=== PATIENT | male | born 1990 | race Caucasian/White ===

== ENCOUNTER 2019-10-10 17:22 | Inpatient (IN) | payer OTHER ==
[~2019-10-10] VITALS: Ht 185.4 cm; Wt 76.2 kg
[2019-10-10] MEDS ORDERED: NS 1,000 ML IV ONE (19:30)
[2019-10-10] MEDS ORDERED: methylPREDNISolone INJ 125 MG/2 ML VIAL (J2930) IV ONE (19:30)
[2019-10-10 19:45] LABS: BASO # 0.1 10^3/uL (0.0-0.2); BASO % 0.5 % (0.0-1.0); EOS # 0.2 10^3/uL (0.0-0.5); EOS % 2.1 % (0.0-3.0); HEMATOCRIT 43.1 % (42.0-52.0); HEMOGLOBIN 14.6 g/dl (13.5-17.5); LYMPH # 2.3 10^3/uL (1.5-5.0); LYMPH % 25.3 % (24.0-44.0); MEAN CORPUSCULAR HEMOGLOBIN 29.2 pg (27.0-33.0); MEAN CORPUSCULAR HGB CONC 33.9 g/dl (32.0-36.5); MEAN CORPUSCULAR VOLUME 86.2 fl (80.0-96.0); MONO # 0.6 10^3/uL (0.0-0.8); MONO % 6.5 % (0.0-5.0); NEUTROPHILS % 65.3 % (36.0-66.0); PLATELET COUNT, AUTOMATED 208 10^3/uL (150-450); WHITE BLOOD COUNT 9.2 10^3/uL (4.0-10.0)
[2019-10-10 20:11] LABS: BLOOD UREA NITROGEN 12 MG/DL (7-18); C REACTIVE PROTEIN QUANTITATIV 2.42 MG/DL (0.00-0.30); CALCIUM LEVEL 9.8 MG/DL (8.5-10.1); CARBON DIOXIDE LEVEL 29 MEQ/L (21-32); CHLORIDE LEVEL 100 MEQ/L (98-107); CREATININE FOR GFR 0.85 MG/DL (0.70-1.30); GLOMERULAR FILTRATION RATE > 60.0 (>60); GLUCOSE, FASTING 76 MG/DL (70-100); POTASSIUM SERUM 3.7 MEQ/L (3.5-5.1); SODIUM LEVEL 137 MEQ/L (136-145)
[2019-10-10] MEDS ORDERED: ISOVUE-370 76% 100ML VIAL (Q9967) As Ordered ONE (20:18)
[2019-10-10 20:33] LABS: ERYTHROCYTE SEDIMENTATION RATE 2 mm/hr (0-15)
--- NOTE | 2019-10-10 20:45 | REPVR ---
PROCEDURE INFORMATION: Exam: CT Maxillofacial With Contrast Exam date and time: 10/10/2019 8:20 PM Clinical history: 29 years old, male; Mass, lump, or swelling; Maxilla; Additional info: Swelling, redness worry for abscess TECHNIQUE: Imaging protocol: Computed tomography images of the face with intravenous contrast. Radiation optimization: All CT scans at this facility use at least one of these dose optimization techniques: automated exposure control; mA and/or kV adjustment per patient size (includes targeted exams where dose is matched to clinical indication); or iterative reconstruction. Contrast material: ISOVUE 370; Contrast volume: 75 ml; Contrast route: IV; COMPARISON: No relevant prior studies available. FINDINGS: Orbits: Orbits are normal. Globes are unremarkable. Sinuses: Normal. No air-fluid levels. Bones/joints: No acute fracture. Lymph nodes: Left perimandibular lymphadenopathy anterior to the submandibular gland measures up to 8 mm likely postinflammatory/infectious. Soft tissues: Gross subcutaneous edema involving the left mandibular, maxillary and buccal regions associated with overlying skin thickening, findings consistent with acute cellulitis. There is a linear fluid density mass demonstrated adjacent to the left masseter muscle measuring 2.1 x 0.6 x 1.3 cm which may represent a developing abscess. IMPRESSION: 1. Gross subcutaneous edema involving the left mandibular, maxillary and buccal regions associated with overlying skin thickening, findings consistent with acute cellulitis. There is a linear fluid density mass demonstrated adjacent to the left masseter muscle which may represent a developing abscess. 2. Regional lymphadenopathy noted as well. Electronically signed by: Mitchell Ventura On 10/10/2019 20:44:55 PM
[2019-10-10] MEDS ORDERED: ALPR0.5T3 (21:25)
[2019-10-10] MEDS ORDERED: BUPR1SUB5 (21:25)
[2019-10-10] MEDS ORDERED: FLUT15.820 (21:25)
[2019-10-10] MEDS ORDERED: DULO1CAP5 (21:25)
[2019-10-10] MEDS ORDERED: BUTA1CAP (21:25)
[2019-10-10] MEDS ORDERED: PIPERACILLIN/TAZOBACTAM SOD 3.375 GM in D5W MINI-BAG PLUS 50 ML IV ONE (21:30)
[2019-10-10] MEDS ORDERED: ACETAMINOPHEN TAB 650MG DOSE (2X325MG) PO PRN (21:30)
[2019-10-10] MEDS ORDERED: VANCOMYCIN HCL 1,000 MG, VIAL MATE ADAPTER 1 EACH in D5W 250 ML IV ONE (21:30)
--- NOTE | 2019-10-10 21:34 | HPEPDOC ---
[facility] Medical History & Physical Date of Admission Oct 10, 2019 Date of Service: Oct 10, 2019 Primary Care Physician: A Other Provider NEHA LITTLE MD Attending Physician: JILLIAN AVITIA MD History and Physical TIME OF SERVICE: 10 PM CHIEF COMPLAINT: Facial lesions HISTORY OF PRESENT ILLNESS: This is a 29-year-old male who presented with complaints of red, painful , raised swollen lesions that were draining green discharge all over his face for 3 days. Prior to that he was at a bar and did a line of what he thought was cocaine. Yesterday he took some clindamycin which was left over from an old prescription of his father's. He denies having any fevers, denies having any chills and denies having this occurred in before after using cocaine. Per discussion with the ED provider. Oral surgery was consulted and recommended ENT eval. Dr. Tran (ENT) recommended admission and IV antibiotics for a minimum of 48 hours and reported that he wouldn't do a procedure at this point in time unless there was a definitive abscess. He received Zosyn. 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 Uses cocaine 1 or 2 times per month Uses marijuana Lives with his parents FAMILY HISTORY: No family history of psychiatric or urological disorders ALLERGIES: Please see below. HOME MEDICATIONS: Please see below. PHYSICAL EXAMINATION: VITAL SIGNS: Please see below. GENERAL APPEARANCE: Well-nourished, well-developed, slightly anxious INTEGUMENT: He has multiple red lesions all over his face with the largest being under his left orbit and extending to the mandible; there is swelling around the left orbit. HEENT: Mucous membranes moist and pink CARDIOVASCULAR: Regular rate and rhythm. No murmurs, rubs or gallops LUNGS: Clear to auscultation bilaterally on room air ABDOMEN: Soft and nontender on palpation MUSCULOSKELETAL: Range of motion intact in all 4 extremities NEUROLOGICAL: Difficult to assess cranial nerves because of facial swelling. Speech not dysarthric PSYCHIATRIC: Alert and oriented, able to understand and follow commands LABORATORY DATA: See below. IMAGING: Maxillofacial CT " IMPRESSION: 1. Gross subcutaneous edema involving the left mandibular, maxillary and buccal regions associated with overlying skin thickening, findings consistent with acute cellulitis. There is a linear fluid density mass demonstrated adjacent to the left masseter muscle which may represent a eveloping abscess. 2. Regional lymphadenopathy noted as well. MICROBIOLOGY: Please see below. ASSESSMENT: Mr. Cabrera is a 29-year-old male with a past medical history of depression, PTSD, anxiety and polysubstance abuse who will be admitted for management of facial cellulitis/lesions, possibly due to accidentally snorting methamphetamine. PLAN: 1. Facial lesion/cellulitis. Appear similar to Meth sores CT report reviewed Plan: Admit to medical floor/follow-up drug screen & wound cultures collected in the ED/continue the Zosyn/follow-up with ENT/the daytime team may consider consulting ID 2. Anxiety/Depression/PTSD Plan: Resume home meds 3. Polysubstance abuse. Plan: Smoking cessation education/nicotine patch/continue Suboxone DVT prophylaxis with SCDs. Disposition: Likely home after more than 2 midnight stay Vital Signs Vital Signs Date Time Temp Pulse Resp B/P (MAP) Pulse Ox O2 Delivery O2 Flow Rate FiO2 10/10/19 18:47 18 10/10/19 17:23 97.9 94 100 Room Air Laboratory Data Labs 24H Laboratory Tests 2 10/10/19 19:28: Immature Granulocyte % (Auto) 0.3, Neutrophils (%) (Auto) 65.3, Lymphocytes (%) (Auto) 25.3, Monocytes (%) (Auto) 6.5H, Eosinophils (%) (Auto) 2.1, Basophils (%) (Auto) 0.5, Neutrophils # (Auto) 6.0, Lymphocytes # (Auto) 2.3, Monocytes # (Auto) 0.6, Eosinophils # (Auto) 0.2, Basophils # (Auto) 0.1, Nucleated Red Blood Cells % (auto) 0.0, Erythrocyte Sedimentation Rate 2, Anion Gap 8, Glomerular Filtration Rate > 60.0, Lactic Acid Level 1.1, Calcium Level 9.8, C- Reactive Protein, Quantitative 2.42H CBC/BMP Laboratory Tests 10/10/19 19:28 Microbiology Microbiology 10/10/19 Gram Stain, Received Pending 10/10/19 Wound Culture, Received Pending 10/10/19 Gram Stain, Received Pending 10/10/19 Wound Culture, Received Pending 10/10/19 Blood Culture, Received Pending 10/10/19 Blood Culture, Received Pending Home Medications Scheduled Alprazolam (Alprazolam) 0.5 Mg Tablet, 0.5 MG PO QHS Amoxicillin/Potassium Clav (Augmentin 875-125 Tablet) 1 Each Tablet, 1 TAB PO BID Buprenorphine HCl/Naloxone HCl (Buprenorphin-Naloxon 8-2 mg Sl) 1 Each Tab.subl, 1 TAB SL TID Dextroamphetamine/Amphetamine (Adderall 10 mg Tablet) 10 Mg Tablet, 1 TAB PO BID Duloxetine Hcl (Duloxetine HCl) 30 Mg Capsule.dr, 30 MG PO DAILY Multivitamins (Thera M Plus Tablet) 1 Each Tablet, 1 TAB PO DAILY Scheduled PRN Acetaminophen (Acetaminophen) 325 Mg Tablet, 650 MG PO Q4H PRN for PAIN OR FEVER Fluticasone Propionate (Fluticasone Propionate) 15.8 Ml [place].susp, 1 SPRAY NA DAILY PRN for NASAL CONGESTION Allergies Coded Allergies: codeine (Verified Allergy, Intermediate, itch, 10/10/19) A-FIB/CHADSVASC A-FIB History Current/History of A-Fib/PAF?: No Current PO Anticoag Therapy: No JILLIAN AVITIA MD Oct 10, 2019 21:34
[2019-10-10] MEDS ORDERED: ADDE10TA PO (21:52)
[2019-10-10] MEDS ORDERED: DULO30CA9 PO (21:52)
[2019-10-10] MEDS ORDERED: BUPR1SUB5 SL (21:52)
[2019-10-10] MEDS ORDERED: ALPR0.5T3 PO (21:52)
[2019-10-10] MEDS ORDERED: FLUT15.819 (21:52)
[2019-10-10] MEDS ORDERED: VITMTA PO (21:52)
[2019-10-10] MEDS: NS 1,000 ML IV SCH (22:03)
[2019-10-10 23:32] VITALS: BP 140/80
[2019-10-11] MEDS: BUPRENORPHINE/NALOXONE 8-2MG SUBLINGUAL TABLET(SUBOXONE) SL SCH ×4 (00:01→20:55)
[2019-10-11] MEDS: ALPRAZolam 0.5 MG TAB PO SCH ×2 (00:01→20:55)
[2019-10-11] MEDS ORDERED: NICOTINE 14 MG/24 HR TRANSDERMAL TD PRN (01:15)
[2019-10-11 02:00] VITALS: BP 112/77
[2019-10-11] MEDS ORDERED: diphenhydrAMINE CREAM 30GM TOP PRN (02:30)
[2019-10-11] MEDS: PIPERACILLIN/TAZOBACTAM SOD 3.375 GM in D5W MINI-BAG PLUS 50 ML IV SCH ×4 (05:12→22:12)
[2019-10-11 06:00] VITALS: BP 115/63
[2019-10-11 06:25] LABS: HEMATOCRIT 37.7 % (42.0-52.0); HEMOGLOBIN 13.1 g/dl (13.5-17.5); MEAN CORPUSCULAR HEMOGLOBIN 29.4 pg (27.0-33.0); MEAN CORPUSCULAR HGB CONC 34.7 g/dl (32.0-36.5); MEAN CORPUSCULAR VOLUME 84.7 fl (80.0-96.0); PLATELET COUNT, AUTOMATED 199 10^3/uL (150-450); RED BLOOD COUNT 4.45 10^6/uL (4.30-6.10); WHITE BLOOD COUNT 5.6 10^3/uL (4.0-10.0)
[2019-10-11 06:33] LABS: INR 1.25; PROTHROMBIN TIME 15.4 SECONDS (11.8-14.0)
[2019-10-11] MEDS: NS 1,000 ML IV SCH ×2 (06:38→16:28)
[2019-10-11] MEDS: ADDERALL 5 MG TAB PO SCH ×2 (06:38→14:11)
[2019-10-11 06:44] LABS: BLOOD UREA NITROGEN 15 MG/DL (7-18); CALCIUM LEVEL 8.8 MG/DL (8.5-10.1); CARBON DIOXIDE LEVEL 29 MEQ/L (21-32); CHLORIDE LEVEL 108 MEQ/L (98-107); CREATININE FOR GFR 0.87 MG/DL (0.70-1.30); GLOMERULAR FILTRATION RATE > 60.0 (>60); GLUCOSE, FASTING 136 MG/DL (70-100); SODIUM LEVEL 143 MEQ/L (136-145)
[2019-10-11] MEDS: DULoxetine 30 MG CAP (CYMBALTA) PO SCH (08:40)
[2019-10-11 10:00] VITALS: BP 120/60
[2019-10-11 14:00] VITALS: BP 130/60
[2019-10-11 18:00] VITALS: BP 127/71
[2019-10-11 22:00] VITALS: BP 142/92
[2019-10-12 02:00] VITALS: BP 123/72
[2019-10-12] MEDS: NS 1,000 ML IV SCH ×2 (04:53→14:46)
[2019-10-12] MEDS: PIPERACILLIN/TAZOBACTAM SOD 3.375 GM in D5W MINI-BAG PLUS 50 ML IV SCH ×4 (05:23→23:26)
[2019-10-12 06:00] VITALS: BP 109/63
[2019-10-12 06:11] LABS: INR 1.18; PROTHROMBIN TIME 14.7 SECONDS (11.8-14.0)
[2019-10-12] MEDS: ADDERALL 5 MG TAB PO SCH ×2 (06:38→14:46)
--- NOTE | 2019-10-12 07:51 | IPNPDOC ---
Subjective Date Seen The patient was seen on 10/11/19. Subjective Chief Complaint/HPI face skin lesions/swelling Objective Physical Examination General Exam: Positive: Alert, Cooperative, No Acute Distress ENT Exam: Positive: Other ENT (diffuse facial swelling with multiple skin lesion involving entire face/forhead ) Neck Exam: Positive: Supple Chest Exam: Positive: Clear to auscultation, Normal air movement Heart Exam: Positive: Rate Normal Abdomen Exam: Positive: Normal bowel sounds Skin Exam: Positive: Nl turgor and temperature Neuro Exam: Positive: Normal Gait, Normal Speech Psych Exam: Positive: Mental status NL, Mood NL Assessment /Plan Assessment 29 y/o M with PMH of depression, PTSD, anxiety and polysubstance abuse who was admitted for management of facial cellulitis/lesions, possibly due to accidentally snorting methamphetamine. PLAN: 1. Facial lesion/cellulitis. improving Appear similar to Meth sores CT report reviewed iv zosyn will consider ENT eval 2. Anxiety/Depression/PTSD home meds 3. Polysubstance abuse. smoking cessation education/nicotine patch/continue Suboxone DVT prophylaxis with SCDs. Plan/VTE VTE Prophylaxis Ordered?: Yes VS, I&O, 24H, [facility] Vital Signs/I&O Vital Signs Date Time Temp Pulse Resp B/P (MAP) Pulse Ox O2 Delivery O2 Flow Rate FiO2 10/11/19 18:00 98.2 85 18 127/71 (89) 98 Room Air I&O- Last 24 Hours up to 6 AM 10/11/19 06:00 Intake Total 1940 ml Output Total 1000 ml Balance 940 ml Laboratory Data 24H LABS Laboratory Tests 2 10/10/19 19:28: Immature Granulocyte % (Auto) 0.3, Neutrophils (%) (Auto) 65.3, Lymphocytes (%) (Auto) 25.3, Monocytes (%) (Auto) 6.5H, Eosinophils (%) (Auto) 2.1, Basophils (%) (Auto) 0.5, Neutrophils # (Auto) 6.0, Lymphocytes # (Auto) 2.3, Monocytes # (Auto) 0.6, Eosinophils # (Auto) 0.2, Basophils # (Auto) 0.1, Nucleated Red Blood Cells % (auto) 0.0, Erythrocyte Sedimentation Rate 2, Anion Gap 8, Glomerular Filtration Rate > 60.0, Lactic Acid Level 1.1, Calcium Level 9.8, C-R eactive Protein, Quantitative 2.42H 10/11/19 05:30: Nucleated Red Blood Cells % (auto) 0.0, Anion Gap 6L, Glomerular Filtration Rate > 60.0, Calcium Level 8.8, Prothrombin Time 15.4H, Prothromb Time International Ratio 1.25 CBC/BMP Laboratory Tests 10/10/19 19:28 10/11/19 05:30 Microbiology Microbiology 10/10/19 Gram Stain - Final, Resulted 10/10/19 Wound Culture, Resulted Pending 10/10/19 Gram Stain - Final, Resulted 10/10/19 Wound Culture, Resulted Pending 10/10/19 Blood Culture, Received Pending 10/10/19 Blood Culture, Received Pending NETTE BURROWS MD Oct 11, 2019 19:13
[2019-10-12] MEDS: DULoxetine 30 MG CAP (CYMBALTA) PO SCH (09:50)
[2019-10-12] MEDS: BUPRENORPHINE/NALOXONE 8-2MG SUBLINGUAL TABLET(SUBOXONE) SL SCH ×3 (09:50→21:53)
[2019-10-12 10:00] VITALS: BP 138/80
--- NOTE | 2019-10-12 13:12 | CR ---
DATE OF CONSULTATION: 10/11/2019 CHIEF COMPLAINT: Left facial cellulitis. HISTORY OF THE PRESENT ILLNESS: This is a 29-year-old man who presented to the emergency department last evening with a 3-day history of swelling of the left face, as well as multiple lesions over the entire facial region. Approximately 3-4 days ago, he was at a bar and snorted a line of street drugs that he thought was cocaine. He started to develop facial swelling about 3 days ago. He took clindamycin that was left over from an old prescription. However, the swelling did not improve. As such, he presented to the emergency department (EMD) for further management. Patient has no facial weakness. He complains of some tingling sensation around his face. He denies epistaxis or chronic nasal congestion. CT neck was done, which showed left facial cellulitis involving the left mandible, maxillary and buccal regions. PAST MEDICAL HISTORY: Post-traumatic stress disorder (PTSD). Anxiety. Attention-deficit hyperactivity disorder (ADHD). PAST SURGICAL HISTORY: Patient denies previous sinus surgery. SOCIAL HISTORY: Patient is a smoker and a tobacco chewer. Using cocaine 1-2 times a month. Patient also admits to abuse of marijuana. FAMILY HISTORY: Noncontributory. HOME MEDICATIONS: - alprazolam - naloxone - duloxetine - dextroamphetamine/amphetamine - Flonase as needed ALLERGIES: CODEINE. REVIEW OF SYSTEMS: As stated in the history of the present illness, otherwise noncontributory. PHYSICAL EXAMINATION: On examination, patient appears in no acute distress. Multiple facial lesions noted on both sides of the face. Swelling of the left face from the left periorbital region down to the mandible area. No facial weakness. Ears: Normal pinna. No pain or discharge from the external auditory canal. Nose: No purulent rhinorrhea. No blood noted in both sides of the nasal cavity. Oral: No trismus. Oral mucosa moist. No ulcerative lesion in the oral cavity. Neck: Trachea midline. No thyromegaly. Lymph Nodes: No cervical lymphadenopathy. LABORATORY: Idania white count. Normal electrolytes. Microbiology: Preliminary blood culture negative. Culture from the face still pending. IMPRESSION: A 29-year-old man with left facial cellulitis and multiple facial lesions. PLAN: Patient is currently on Zosyn. No loculation of the abscess in the neck region requiring surgical intervention at this time. Hospitalist to consider infectious disease (ID) consultation if the facial cellulitis is not responding to Zosyn.
[2019-10-12 14:00] VITALS: BP 134/75
--- NOTE | 2019-10-12 15:35 | IPNPDOC ---
Subjective Date Seen The patient was seen on 10/12/19. Subjective Chief Complaint/HPI facial swelling Events since last encounter Pt was seen at bedside. Pt stated that his facial swelling has slightly improved Objective Physical Examination General Exam: Positive: Alert, Cooperative, No Acute Distress Eye Exam: Positive: PERRLA ENT Exam: Positive: Other ENT (diffuse facial swelling with multiple skin lesion involving entire face/forhead ) Neck Exam: Positive: Supple Chest Exam: Positive: Clear to auscultation, Normal air movement Heart Exam: Positive: Rate Normal Abdomen Exam: Positive: Normal bowel sounds Skin Exam: Positive: Nl turgor and temperature Neuro Exam: Positive: Normal Gait, Normal Speech Psych Exam: Positive: Mental status NL, Mood NL Assessment /Plan Assessment 29 y/o M with h/o depression, PTSD, anxiety and polysubstance abuse was admitted for management of facial cellulitis/lesions PLAN: 1. Facial lesion/cellulitis. improving Appear similar to Meth sores CT report reviewed iv zosyn ENT recommendation appreciated 2. Anxiety/Depression/PTSD home meds 3. Polysubstance abuse. smoking cessation education/nicotine patch/continue Suboxone DVT prophylaxis with SCDs. If pt continue to improve clinically possible discharge tomorrow morning. Plan/VTE VTE Prophylaxis Ordered?: Yes VS, I&O, 24H, Fishbone Vital Signs/I&O Vital Signs Date Time Temp Pulse Resp B/P (MAP) Pulse Ox O2 Delivery O2 Flow Rate FiO2 10/12/19 10:00 98.2 72 17 138/80 (99) 100 Room Air I&O- Last 24 Hours up to 6 AM 10/12/19 06:00 Intake Total 2005 ml Output Total 0 ml Balance 2005 ml Laboratory Data 24H LABS Laboratory Tests 2 10/12/19 05:47: Prothrombin Time 14.7H, Prothromb Time International Ratio 1.18 Microbiology Microbiology 10/10/19 Gram Stain - Final, Complete 10/10/19 Wound Culture - Final, Complete Staphylococcus Aureus 10/10/19 Gram Stain - Final, Resulted 10/10/19 Wound Culture, Resulted Pending 10/10/19 Blood Culture - Preliminary, Resulted No growth after 24 hours . All specim... 10/10/19 Blood Culture - Preliminary, Resulted No growth after 24 hours . All specim... NETTE BURROWS MD Oct 12, 2019 15:35
[2019-10-12 18:00] VITALS: BP 130/68
[2019-10-12] MEDS: ALPRAZolam 0.5 MG TAB PO SCH (21:53)
[2019-10-12 22:00] VITALS: BP 136/85
[2019-10-13 02:00] VITALS: BP 128/80
[2019-10-13] MEDS: NS 1,000 ML IV SCH ×2 (02:50→09:30)
[2019-10-13] MEDS: PIPERACILLIN/TAZOBACTAM SOD 3.375 GM in D5W MINI-BAG PLUS 50 ML IV SCH (05:22)
[2019-10-13 06:00] VITALS: BP 137/64
[2019-10-13] MEDS: ADDERALL 5 MG TAB PO SCH (06:43)
[2019-10-13 06:48] LABS: INR 1.19; PROTHROMBIN TIME 14.8 SECONDS (11.8-14.0)
[2019-10-13] MEDS: DULoxetine 30 MG CAP (CYMBALTA) PO SCH (09:13)
[2019-10-13] MEDS: BUPRENORPHINE/NALOXONE 8-2MG SUBLINGUAL TABLET(SUBOXONE) SL SCH (09:13)
[2019-10-13] MEDS ORDERED: ACET1TAB55 PO (09:39)
[2019-10-13] MEDS ORDERED: AUGM875T28 PO (09:39)
--- NOTE | 2019-10-13 09:42 | DS.PDOC ---
Discharge Summary General Date of Admission Oct 10, 2019 at 21:30 Date of Discharge 10/13/19 Discharge Summary ADMITTING DIAGNOSES: Facial cellulitis DISCHARGE DIAGNOSES: Resolved episode of facial cellulitis COMPLICATIONS/CHIEF COMPLAINT: Lesion Of Skin Of Face. HISTORY OF PRESENT ILLNESS:"29-year-old male who presented with complaints of red, painful , raised swollen lesions that were draining green discharge all over his face for 3 days. Prior to that he was at a bar and did a line of what he thought was cocaine. Yesterday he took some clindamycin which was left over from an old prescription of his father's. He denies having any fevers, denies having any chills and denies having this occurred in before after using cocaine. Per discussion with the ED provider. Oral surgery was consulted and recommended ENT eval. Dr. Tran (ENT) recommended admission and IV antibiotics for a minimum of 48 hours and reported that he wouldn't do a procedure at this point in time unless there was a definitive abscess. He received Zosyn.". HOSPITAL COURSE: 29 y/o M was admitted for facial cellulitis. During hospital stay pt was evaluated by ENT- pt did not require surgical intervention. Pt was started on iv zosyn. Over the course of treatment pt's clinical condition improved. Pt was counselled about illicit drug abuse. Facial skin lesion were most probably related to Methamphetamine snorting. Pt was seen and examined at bedside on day of discharge. Pt stated that he is feeling fine. Pt was clinically and vitally stable at the time of discharge. Pt was instructed to complete the course of antibiotics. PHYSICAL EXAMINATION ON DISCHARGE: VITAL SIGNS: Please see below. GENERAL: Comfortable, not in acute distress. HEENT: multiple skin lesion over face have started to heal, NO active discharge. NO tenderness/warmth. NECK: supple CARDIOVASCULAR EXAMINATION: Regular rate and rhythm RESPIRATORY EXAMINATION: clear to auscultation ABDOMINAL EXAMINATION: Soft EXTREMITIES: no pedal edema NEUROLOGICAL EXAMINATION: no focal deficit LABORATORY DATA: Please see below. I spent 35 minutes of time in coordinating discharge of this patient. Vital Signs/I&Os Vital Signs Date Time Temp Pulse Resp B/P (MAP) Pulse Ox O2 Delivery O2 Flow Rate FiO2 10/13/19 06:00 97.4 54 16 137/64 (88) 99 Room Air I&O- Last 24 Hours up to 6 AM 10/13/19 06:00 Intake Total 2420 ml Output Total 1000 ml Balance 1420 ml Laboratory Data Labs 24H Laboratory Tests 2 10/13/19 06:08: Prothrombin Time 14.8H, Prothromb Time International Ratio 1.19 Microbiology Microbiology 10/10/19 Gram Stain - Final, Complete 10/10/19 Wound Culture - Final, Complete Staphylococcus Aureus 10/10/19 Gram Stain - Final, Complete 10/10/19 Wound Culture - Final, Complete Staphylococcus Aureus Staphylococcus Sp Coag Neg 10/10/19 Blood Culture - Preliminary, Resulted No Growth after 48 hours. All Specime... 10/10/19 Blood Culture - Preliminary, Resulted No Growth after 48 hours. All Specime... Discharge Medications Scheduled Alprazolam (Alprazolam) 0.5 Mg Tablet, 0.5 MG PO QHS, (Reported) Amoxicillin/Potassium Clav (Augmentin 875-125 Tablet) 1 Each Tablet, 1 TAB PO BID Buprenorphine HCl/Naloxone HCl (Buprenorphin-Naloxon 8-2 mg Sl) 1 Each Tab.subl, 1 TAB SL TID, (Reported) Dextroamphetamine/Amphetamine (Adderall 10 mg Tablet) 10 Mg Tablet, 1 TAB PO B ID, (Reported) Duloxetine Hcl (Duloxetine HCl) 30 Mg Capsule.dr, 30 MG PO DAILY, (Reported) Multivitamins (Thera M Plus Tablet) 1 Each Tablet, 1 TAB PO DAILY, (Reported) Scheduled PRN Acetaminophen (Acetaminophen) 325 Mg Tablet, 650 MG PO Q4H PRN for PAIN OR FEVER Fluticasone Propionate (Fluticasone Propionate) 15.8 Ml [place].susp, 1 SPRAY NA DAILY PRN for NASAL CONGESTION, (Reported) Allergies Coded Allergies: codeine (Verified Allergy, Intermediate, itch, 10/10/19) NETTE BURROWS MD Oct 13, 2019 09:42
== END 2019-10-13 11:02 | disposition home or self-care (01) | DRG 383 ==
LOC: M ED 17:22 → M ED INP 21:30 → M MSPAV 23:33
PROVIDERS: ADMIT Internal Medicine; ATTEND Internal Medicine
DX: L03.211 Cellulitis of face (principal); F32.9 Major depressive disorder, single episode, unspecified; F14.90 Cocaine use, unspecified, uncomplicated; Z79.899 Other long term (current) drug therapy; Z88.5 Allergy status to narcotic agent; F17.200 Nicotine dependence, unspecified, uncomplicated; F41.9 Anxiety disorder, unspecified; F43.10 Post-traumatic stress disorder, unspecified; F90.9 Attention-deficit hyperactivity disorder, unspecified type